=== PATIENT | female | born 1960 | race Hispanic/Latino ===

== ENCOUNTER 2020-09-17 18:05 | Emergency (ER) | payer OTHER ==
[2020-09-17 19:48] LABS: Absolute Lymphocytes (CBC) 0.9 K/uL (0.7-4.9); Basophils % 0.4 % (0-1.3); Hematocrit 43.2 % (36.0-45.0); Lymphocytes % 12.3 % (15.3-44.8); MPV 8.2 fL (7.6-11.3); RBC Red Blood Cell Count 4.83 M/uL (3.86-4.86)
[2020-09-17] MEDS ORDERED: NA CHLORIDE 0.9% 1,000 ML ONE ×2 (19:51→23:13)
[2020-09-17] MEDS ORDERED: ONDANSETRON 4 MG/2 ML VIAL ONE (19:58)
[2020-09-17] MEDS ORDERED: MORPHINE 4 MG/ML SYR ONE (19:58)
[2020-09-17 20:05] LABS: ALT/SGPT 13 U/L (12-78); AST/SGOT 13 U/L (15-37); Albumin 3.6 g/dL (3.4-5.0); Alkaline Phosphatase 86 U/L (45-117); BUN Blood Urea Nitrogen 13 mg/dL (7-18); Bicarbonate 24 mmol/L (21-32); Bilirubin Direct 0.1 mg/dL (0-0.2); Bilirubin Total 0.5 mg/dL (0.2-1.0); Glucose Level 105 mg/dL (74-106); Lipase 45 U/L (73-393); Potassium 3.1 mmol/L (3.5-5.1); Protein, Total 7.4 g/dL (6.4-8.2); Sodium Level 142 mmol/L (136-145)
--- NOTE | 2020-09-17 20:25 | RAD REPORT ---
EXAM DESCRIPTION: CT - Abdomen Pelvis W Contrast - 09/17/2020 8:10 pm CLINICAL HISTORY: Abdominal pain COMPARISON: none. TECHNIQUE: Computed axial tomography of the abdomen pelvis was obtained. 100 cc Isovue-300 was admin istered intravenously. Oral contrast was not requested which limits evaluation of bowel. All CT scans are performed using dose optimization technique as appropriate and may include automated exposure control or mA/KV adjustment according to patient size. FINDINGS: The liver, spleen, pancreas, adrenal and kidneys appear unremarkable. There is no evidence of diverticulitis. Normal appendix Fluid is present within nondilated is large and small bowel. Cholecystectomy. Prominent periuterine v eins. Small hiatal hernia IMPRESSION: Fluid within nondilated large and small bowel may indicate an enteritis Prominent periuterine veins is a nonspecific finding but can be seen with pelvic venous congestion sy ndrome
--- NOTE | 2020-09-17 23:14 | EDPHYS ---
Physician Documentation [facility] Name: Tyesha Lou Age: 59 yrs Sex: Female : 1960 Arrival Date: 09/17/2020 Time: 18:11 Bed 7 Private MD: ED Physician Yoel Parmar HPI: 09/17 19:51 This 59 yrs old Female presents to ER via Ambulatory with complaints of pm1 Diarrhea. 19:51 The patient presents to the emergency department with diarrhea, abdominal pain, of the pm1 epigastric area, described as crampy. Onset: The symptoms/episode began/occurred 2 day(s) ago. Possible causes: sick contacts, by family, daughter, works at [employer]. The symptoms are aggravated by food , The symptoms are alleviated by nothing. Associated signs and symptoms: Pertinent positives: abdominal pain, nausea, vomiting, Pertinent negatives: dysuria, fever. Severity of symptoms: in the emergency department the symptoms are unchanged. The patient has not experienced similar symptoms in the past. The patient has not recently seen a physician. Historical: - Allergies: 18:35 NSAIDS; ll1 18:35 Aspirin; ll1 - PMHx: 18:35 low BP; COPD; ll1 - PSHx: 18:35 facial reconstruction, rectal reconstruction; Cholecystectomy; foot sx; ll1 - Immunization history:: Flu vaccine is not up to date. - Social history:: Smoking status: Patient denies any tobacco usage or history of. ROS: 19:51 Constitutional: Negative for fever, chills, and weight loss, Neck: Negative for injury, pm1 pain, and swelling, Cardiovascular: Negative for chest pain, palpitations, and edema, Respiratory: Negative for shortness of breath, cough, wheezing, and pleuritic chest pain. 19:51 Back: Negative for injury and pain, MS/Extremity: Negative for injury and deformity, Skin: Negative for injury, rash, and discoloration, Neuro: Negative for headache, weakness, numbness, tingling, and seizure. 19:51 Abdomen/GI: Positive for abdominal pain, nausea, vomiting, and diarrhea. Exam: 19:51 Constitutional: This is a well developed, well nourished patient who is awake, alert, pm1 and in no acute distress. Head/Face: Normocephalic, atraumatic. Chest/axilla: Normal chest wall appearance and motion. Nontender with no deformity. No lesions are appreciated. 19:51 Back: No spinal tenderness. No costovertebral tenderness. Full range of motion. 19:51 Skin: Warm, dry with normal turgor. Normal color with no rashes, no lesions, and no evidence of cellulitis. MS/ Extremity: Pulses equal, no cyanosis. Neurovascular intact. Full, normal range of motion. 19:51 Cardiovascular: Exam negative for acute changes, Rate: normal, Rhythm: regular, Pulses: no pulse deficits are appreciated. 19:51 Respiratory: Exam negative for acute changes, respiratory distress, shortness of breath. 19:51 Abdomen/GI: Inspection: abdomen appears normal, Palpation: soft, in all quadrants, mild abdominal tenderness, in the epigastric area. 19:51 Neuro: Exam negative for acute changes, Orientation: is normal, Mentation: is normal, Motor: is normal, moves all fours. Vital Signs: 18:31 BP 130 / 83; Pulse 88; Resp 17; Temp 97.9; Pulse Ox 99% ; Weight 80.29 kg; Height 5 ft. ll1 0 in. (152.40 cm); Pain 7/10; 19:42 BP 127 / 77; Pulse 74; Resp 17; Pulse Ox 95% on R/A; rv 20:45 BP 121 / 69; Pulse 68; Resp 16; Pulse Ox 94% on R/A; jb4 22:00 BP 110 / 75; Pulse 74; Resp 16; Pulse Ox 95% on R/A; jb4 23:00 BP 101 / 66; Pulse 65; Resp 16; Pulse Ox 98% on R/A; jb4 09/18 00:00 BP 104 / 58; Pulse 56; Resp 18; Pulse Ox 98% on R/A; jb4 09/17 18:31 Body Mass Index 34.57 (80.29 kg, 152.40 cm) ll1 MDM: 09/17 19:26 Patient medically screened. pm1 23:01 Data reviewed: vital signs. Data interpreted: Pulse oximetry: on room air is 95 %. pm1 Interpretation: normal. Counseling: I had a detailed discussion with the patient and/or guardian regarding: the historical points, exam findings, and any diagnostic results supporting the discharge/admit diagnosis, lab results, radiology results, the need for outpatient follow up, to return to the emergency department if symptoms worsen or persist or if there are any questions or concerns that arise at home. 09/17 19:26 Order name: Basic Metabolic Panel pm09/17 19:26 Order name: CBC with Diff pm09/17 19:26 Order name: Hepatic Function pm09/17 19:26 Order name: Lipase pm09/17 19:50 Order name: CBC with Automated Diff; Complete Time: 19:58 EDMS 09/17 20:00 Order name: CREATININE WHOLE BLOOD; Complete Time: 20:08 EDMS 09/17 19:26 Order name: CT Abd/Pelvis - IV Contrast Only pm09/17 20:05 Order name: Basic Metabolic Panel; Complete Time: 20:08 EDMS 09/17 20:05 Order name: Liver (Hepatic) Function; Complete Time: 20:08 EDMS 09/17 20:05 Order name: Lipase; Complete Time: 20:08 EDMS 09/17 22:04 Order name: Troponin (emerg Dept Use Only) pm09/17 22:47 Order name: Troponin (Emerg Dept Use Only); Complete Time: 22:49 EDMS 09/17 23:43 Order name: Urine Dipstick--Ancillary (enter results) 2 09/17 23:54 Order name: Urine Dipstick-Ancillary; Complete Time: 13:23 EDMS 09/17 19:26 Order name: IV Saline Lock; Complete Time: 19:37 pm09/17 19:26 Order name: Labs collected and sent; Complete Time: 19:37 pm09/17 19:26 Order name: Urine Dipstick-Ancillary (obtain specimen); Complete Time: 23:42 pm09/17 20:25 Order name: CT; Complete Time: 20:43 EDMS 09/17 22:04 Order name: EKG; Complete Time: 22:04 pm09/17 22:04 Order name: EKG - Nurse/Tech; Complete Time: 22:28 pm1 Administered Medications: 19:37 Drug: NS 0.9% 1000 ml Route: IV; Rate: 1000 ml; Site: right wrist; jb4 20:30 Follow up: Response: No adverse reaction; IV Status: Completed infusion; IV Intake: jb4 1000ml 19:40 Drug: Zofran (Ondansetron) 4 mg Route: IVP; Site: right wrist; jb4 20:10 Follow up: Response: No adverse reaction; Nausea is decreased jb4 19:42 Drug: morphine 4 mg Route: IVP; Site: right wrist; jb4 20:15 Follow up: Response: No adverse reaction; Pain is decreased; RASS: Alert and Calm (0) jb4 23:00 Drug: NS 0.9% 1000 ml Route: IV; Rate: 1000 ml; Site: right wrist; jb4 09/18 00:19 Follow up: Response: No adverse reaction; IV Status: Completed infusion; IV Intake: jb4 1000ml Disposition: 02:33 Co-signature as Attending Physician, Yoel Parmar MD. 7 Disposition: 09/17/20 23:13 Discharged to Home. Impression: Vomiting, Diarrhea, unspecified. - Condition is Stable. - Discharge Instructions: Food Choices to Help Relieve Diarrhea, Adult, Diarrhea, Adult, Nausea and Vomiting, Adult, Viral Gastroenteritis, Adult. - Prescriptions for Zofran ODT 4 mg Oral tablet,disintegrating - place 1 tablet by TRANSLINGUAL route every 8 hours As needed; 20 tablet. Bentyl 20 mg Oral Tablet - take 1 tablet by ORAL route every 6 hours As needed; 20 tablet. - Medication Reconciliation Form, Thank You Letter, Antibiotic Education, Prescription Opioid Use form. - Follow up: Emergency Department; When: As needed; Reason: Recheck today's complaints, Continuance of care, Re-evaluation by your physician. Follow up: Private Physician; When: 2 - 3 days; Reason: Recheck today's complaints, Continuance of care, Re-evaluation by your physician. - Problem is new. - Symptoms have improved. Signatures: Dispatcher [employer] EDMS Olegario Campa, MEDINA ACT TUTOR pm1 Jose Whitney RN RN jb4 Pao Rucker RN RN 1 Yoel Parmar MD MD 7 Corrections: (The following items were deleted from the chart) 00:22 09/17 23:13 09/17/2020 23:13 Discharged to Home. Impression: Vomiting; Diarrhea, jb4 unspecified. Condition is Stable. Forms are Medication Reconciliation Form, Thank You Letter, Antibiotic Education, Prescription Opioid Use. Follow up: Emergency Department; When: As needed; Reason: Recheck today's complaints, Continuance of care, Re-evaluation by your physician. Follow up: Private Physician; When: 2 - 3 days; Reason: Recheck today's complaints, Continuance of care, Re-evaluation by your physician. Problem is new. Symptoms have improved. pm1
--- NOTE | 2020-09-17 23:14 | ER ---
Nurse's Notes [facility] Name: Tyesha Lou Age: 59 yrs Sex: Female : 1960 Arrival Date: 09/17/2020 Time: 18:11 Bed 7 Private MD: Diagnosis: Vomiting;Diarrhea, unspecified Presentation: 09/17 18:31 Chief complaint: Patient states: N/V/D for 2 days. + epigastric pain. No known fever. + ll1 decreased appetite. Coronavirus screen: Client denies travel out of the [place] in the last 14 days. cough unrelated to allergies, diarrhea, nausea, vomiting. Client presents with at least one sign or symptom that may indicate coronavirus-19. Standard/surgical mask placed on the client. Ebola Screen: Patient denies travel to an Ebola-affected area in the 21 days before illness onset. Initial Sepsis Screen: Does the patient meet any 2 criteria? No. Patient's initial sepsis screen is negative. Does the patient have a suspected source of infection? Yes: Acute abdominal pain. Risk Assessment: Do you want to hurt yourself or someone else? Patient reports no desire to harm self or others. Onset of symptoms was September 16, 2020. 18:31 Method Of Arrival: Ambulatory ll1 18:31 Acuity: IZZY 3 ll1 Triage Assessment: 19:40 General: Appears uncomfortable, Behavior is calm, cooperative. Pain:. Neuro: Level of rv Consciousness is awake, alert, obeys commands, Oriented to person, place, time, situation. Cardiovascular: Patient's skin is warm and dry. Respiratory: Airway is patent Respiratory effort is even, unlabored. GI: Reports diarrhea. Derm: Skin is intact. Historical: - Allergies: 18:35 NSAIDS; ll1 18:35 Aspirin; ll1 - PMHx: 18:35 low BP; COPD; ll1 - PSHx: 18:35 facial reconstruction, rectal reconstruction; Cholecystectomy; foot sx; ll1 - Immunization history:: Flu vaccine is not up to date. - Social history:: Smoking status: Patient denies any tobacco usage or history of. Screenin:40 Abuse screen: Denies threats or abuse. Denies injuries from another. Nutritional rv screening: No deficits noted. Tuberculosis screening: No symptoms or risk factors identified. Fall Risk None identified. Assessment: 19:30 General: Appears in no apparent distress. uncomfortable, Behavior is calm, cooperative, jb4 appropriate for age. Pain: Complains of pain in abdomen Pain does not radiate. Pain currently is 7 out of 10 on a pain scale. Neuro: Level of Consciousness is awake, alert, obeys commands, Oriented to person, place, time, situation. Cardiovascular: Respiratory: Airway is patent Respiratory effort is even, unlabored, Respiratory pattern is regular, symmetrical. GI: Abdomen is non-distended, obese, Reports lower abdominal pain, upper abdominal pain, diarrhea, nausea, vomiting. : No signs and/or symptoms were reported regarding the genitourinary system. EENT: No signs and/or symptoms were reported regarding the EENT system. Derm: Skin is intact, Skin is pink, warm \T\ dry. Musculoskeletal: Circulation, motion, and sensation intact. Range of motion: intact in all extremities. 21:01 Reassessment: Patient appears in no apparent distress at this time. Patient and/or jb4 family updated on plan of care and expected duration. Pain level reassessed. Patient is alert, oriented x 3, equal unlabored respirations, skin warm/dry/pink. 22:00 Reassessment: Patient appears in no apparent distress at this time. Patient and/or jb4 family updated on plan of care and expected duration. Pain level reassessed. Patient is alert, oriented x 3, equal unlabored respirations, skin warm/dry/pink. 23:03 Reassessment: Patient appears in no apparent distress at this time. Patient and/or jb4 family updated on plan of care and expected duration. Pain level reassessed. Patient is alert, oriented x 3, equal unlabored respirations, skin warm/dry/pink. Provider at the bedside explaining plan of care. Patient states feeling better. 23:30 Reassessment: D/c pending completion of IV fluids. mg2 09/18 00:00 Reassessment: Patient appears in no apparent distress at this time. Patient and/or jb4 family updated on plan of care and expected duration. Pain level reassessed. Patient is alert, oriented x 3, equal unlabored respirations, skin warm/dry/pink. Patient states feeling better. Vital Signs: 09/17 18:31 BP 130 / 83; Pulse 88; Resp 17; Temp 97.9; Pulse Ox 99% ; Weight 80.29 kg; Height 5 ft. ll1 0 in. (152.40 cm); Pain 7/10; 19:42 BP 127 / 77; Pulse 74; Resp 17; Pulse Ox 95% on R/A; rv 20:45 BP 121 / 69; Pulse 68; Resp 16; Pulse Ox 94% on R/A; jb4 22:00 BP 110 / 75; Pulse 74; Resp 16; Pulse Ox 95% on R/A; jb4 23:00 BP 101 / 66; Pulse 65; Resp 16; Pulse Ox 98% on R/A; jb4 09/18 00:00 BP 104 / 58; Pulse 56; Resp 18; Pulse Ox 98% on R/A; jb4 09/17 18:31 Body Mass Index 34.57 (80.29 kg, 152.40 cm) ll1 ED Course: 09/17 18:11 Patient arrived in ED. rg4 18:33 Triage completed. ll1 18:35 Arm band placed on. ll1 19:20 Olegario Campa NP is PHCP. pm1 19:20 Yoel Parmar MD is Attending Physician. pm1 19:33 Jose Whitney, BRENDON is Primary Nurse. jb4 19:35 Inserted saline lock: 20 gauge in right forearm, using aseptic technique. Blood rv collected. 19:35 Initial lab(s) drawn, by ut, sent to lab. rv 19:40 Patient has correct armband on for positive identification. Pulse ox on. NIBP on. rv 19:41 No provider procedures requiring assistance completed. rv Administered Medications: 19:37 Drug: NS 0.9% 1000 ml Route: IV; Rate: 1000 ml; Site: right wrist; jb4 20:30 Follow up: Response: No adverse reaction; IV Status: Completed infusion; IV Intake: jb4 1000ml 19:40 Drug: Zofran (Ondansetron) 4 mg Route: IVP; Site: right wrist; jb4 20:10 Follow up: Response: No adverse reaction; Nausea is decreased jb4 19:42 Drug: morphine 4 mg Route: IVP; Site: right wrist; jb4 20:15 Follow up: Response: No adverse reaction; Pain is decreased; RASS: Alert and Calm (0) jb4 23:00 Drug: NS 0.9% 1000 ml Route: IV; Rate: 1000 ml; Site: right wrist; jb4 09/18 00:19 Follow up: Response: No adverse reaction; IV Status: Completed infusion; IV Intake: jb4 1000ml Intake: 09/17 20:30 IV: 1000ml; Total: 1000ml. jb4 09/18 00:19 IV: 1000ml; Total: 2000ml. jb4 Outcome: 09/17 23:13 Discharge ordered by . pm1 09/18 00:22 Patient left the ED. jb4 Signatures: Olegario Campa NP TRUCK DRIVER RUBBISH COLLECTOR pm1 Alana Lugo rg4 Jose Whitney, RN RN jb4 Jack Jackson, RN RN mg2 Naresh Morgan RN RN rv Pao Rucker RN RN ll1 Corrections: (The following items were deleted from the chart) 00:03 00:00 Reassessment: Patient appears in no apparent distress at this time. Patient jb4 and/or family updated on plan of care and expected duration. Pain level reassessed. Patient is alert, oriented x 3, equal unlabored respirations, skin warm/dry/pink. Patient states feeling better. mg2
[2020-09-17 23:54] LABS: Urine Blood TRACE (NEG); Urine Glucose NEGATIVE (NEG); Urine Protein NEGATIVE (NEG)
[2020-09-18 00:27] VITALS: TEMP 97.9
[2020-09-18 00:33] VITALS: O2SAT 98
[2020-09-18 00:34] VITALS: BP 104/58
--- NOTE | 2020-09-18 13:13 | EKG ---
Test Date: 2020-09-17 Test Time: 22:13:34 Psychiatric Nurse: BENITEZ MEASUREMENT RESULTS: Intervals: Rate: 67 NM: 166 QRSD: 86 QT: 406 QTc: 429 Victor: P: 44 NM: 166 QRS: 55 T: 67 INTERPRETIVE STATEMENTS: Normal sinus rhythm Low voltage QRS Nonspecific ST and T wave abnormality Abnormal ECG Compared to ECG 01/25/1998 03:31:00 Low QRS voltage now present ST (T wave) deviation now present Electronically Signed On 09-18-20 13:12:25 TEST DESKMAN by Elio Richardson
== END 2020-09-18 00:22 | disposition home or self-care (01) ==
LOC: ER 18:05
DX: R19.7 Diarrhea, unspecified (principal); J44.9 Chronic obstructive pulmonary disease, unspecified; Z88.6 Allergy status to analgesic agent
CPT/HCPCS: 96361; 93005; 85025; 80048; 36415; 82565; 80076; 81003; 84484; 83690; 74177; 96375; 96374; 99284; Q9967; J7030 ×2; J2405

== ENCOUNTER 2020-11-22 16:36 | Emergency (ER) | payer OTHER ==
--- OUTSIDE RECORDS SUMMARY | 2020-11-22 16:39 | XMS REPORT | Continuity of Care Document ---
:1960 Author Organization [facility] t Address [address] [place] [address] Care Team Providers Name Role Phone Lab, Fam Pob I Attending Clinician Unavailable Doctor Unassigned, Name Attending Clinician Unavailable Kami HANEY, Tito Attending Clinician Problems This patient has no known problems. Allergies, Adverse Reactions, Alerts Allergy Allergy Status Severity Reaction(s) Onset Inactive Treating Comm ents Source Name Type Date Date Clinician Aspir-81 Adverse Active Hives [facility] Medications Ordered Filled Start Stop Current Ordering Indication Dosage Frequency Signature Comments Components Source Medication Medication Date Date Medication? Clinician (SIG) Name Name Acetaminoph Acetaminoph 2020-0 Yes Dutch [address] [facility] en-Codeine en-Codeine 4-30 [facility] as needed [facility] Sumatriptan Sumatriptan Yes Dutch [address] [facility] Succinate Succinate [facility] at least 2 [facility] - hours [facility] between l doses as Outpati needed ent Clinics Advair Advair Yes Dutch [address] [facility] Diskus Diskus [facility] ProAir HFA ProAir HFA Yes Dutch [address] [facility] Ipratropium Ipratropium Yes Dutch 2.[address] [facility] [place] Albuterol Albuterol Yes Dutch [address] [facility] Sulfate Sulfate [facility] needed [facility] Spiriva Spiriva Yes Dutch [address] HandiHaler HandiHaler [place] by Moira ortiz - inhaling [facility] the l contents Outpati of the ent capsule Clinics using the HandiHaler device Procedures This patient has no known procedures. Encounters Start End Encounter Admission Attending Care Care Encounter Source Date/Time Date/Time Type Type Clinicians Facility Department ID 2020-11-21 2020-11-21 [facility] [id number] 2020-11-07 2020-11-07 [facility] [id number] [facility] 2020-09-08 2020-09-08 [facility] [id number] [facility] 2020-08-07 2020-08-07 [facility] [id number] [facility] 2020-08-07 2020-08-07 [facility] [id number] [facility] 2020-06-16 2020-06-16 [facility] [id number] [facility] 2020-06-15 2020-06-15 Laboratory Lab, Adc [facility] [id number] 14:17:14 14:37:14 Only Fam [facility] [id number] [place] [id number] [facility] [phone] [address]al [address] 2020-06-15 2020-06-15 Letter Doctor NOAH [id number] 00:00:00 00:00:00 (Out) Unassigned, ZHAO [id number] [place] [facility] [id number] 2020-05-24 2020-05-24 Outpatient [facility] [id number] [facility] 2020-05-23 2020-05-23 Out[facility] [id number] [facility] 2020-02-29 2020-02-29 [facility] [id number] [facility] 13:15:00 13:15:00 [facility] [facility] Outpati [facility] Clinics 2019-12-30 2019-12-30 [facility] [id number] 13:30:00 13:30:00 t [facility] Outpat[facility] Clinics 2019-12-08 2019-12-08 Orders Doctor ZAMORA [id number] 00:00:00 00:00:00 Only Unassigned, ZHAO [id number] [place] [id number] 2019-12-02 2019-12-02 [facility] [id number] 11:00:00 11:00:00 t [place] [employer] [facility] Outpat[facility] Clinics 2019-09-18 2019-09-18 Emergency [facility], [facility] [id number] 17:41:11 19:36:00 Rhina Bruno [id number] [place] [id number] [place] [id number] [id number] 2019-08-23 2019-08-23 Orders Doctor ZAMORA [id number] 00:00:00 00:00:00 Only Unassigned, ZHAO [id number] [place] [facility] [id number] [id number] Results This patient has no known results.
[2020-11-22 20:44] LABS: Absolute Lymphocytes (CBC) 3.1 K/uL (0.7-4.9); Basophils % 0.5 % (0-1.3); Hematocrit 38.1 % (36.0-45.0); Lymphocytes % 34.1 % (15.3-44.8); MPV 8.2 fL (7.6-11.3); RBC Red Blood Cell Count 4.32 M/uL (3.86-4.86)
[2020-11-22 20:45] LABS: Protime INR 1.07
[2020-11-22 20:50] LABS: ALT/SGPT 17 U/L (12-78); AST/SGOT 10 U/L (15-37); Albumin 3.4 g/dL (3.4-5.0); Alkaline Phosphatase 82 U/L (45-117); BUN Blood Urea Nitrogen 13 mg/dL (7-18); Bicarbonate 29 mmol/L (21-32); Bilirubin Direct < 0.1 mg/dL (0-0.2); Bilirubin Total 0.2 mg/dL (0.2-1.0); Glucose Level 118 mg/dL (74-106); Magnesium 1.9 mg/dL (1.8-2.4); NT PRO-BNP 34 pg/mL (<125); Potassium 3.4 mmol/L (3.5-5.1); Protein, Total 6.8 g/dL (6.4-8.2); Sodium Level 141 mmol/L (136-145); Troponin (Emerg Dept Use Only) < 0.02 ng/mL (0.0-0.045)
[2020-11-22] MEDS ORDERED: ONDANSETRON 4 MG/2 ML VIAL ONE (21:19)
[2020-11-22] MEDS ORDERED: MECLIZINE HCL 12.5 MG TAB ONE (21:19)
[2020-11-22] MEDS ORDERED: NA CHLORIDE 0.9% 1,000 ML ONE (21:19)
--- NOTE | 2020-11-22 21:21 | RAD REPORT ---
EXAM DESCRIPTION: RAD - Chest Single View - 11/22/2020 8:44 pm CLINICAL HISTORY: dizziness COMPARISON: None TECHNIQUE: AP portable chest image was obtained 11/22/2020 8:44 pm . FINDINGS: Lungs are clear. Heart and vasculature are normal. No measurable pleural effusion and no p neumothorax. No acute bony abnormality seen. No acute aortic findings suspected. IMPRESSION: No acute cardiopulmonary process.
--- NOTE | 2020-11-22 21:22 | RAD REPORT ---
EXAM DESCRIPTION: CT - Head Brain Wo Cont - 11/22/2020 9:07 pm CLINICAL HISTORY: DIZZINESS COMPARISON: No comparisons TECHNIQUE: Axial 5 mm thick images of the head were obtained without IV contrast. All CT scans are performed using dose optimization technique as appropriate and may include automated exposure control or mA/KV adjustment according to patient size. FINDINGS: No intracranial hemorrhage, mass, edema or shift of mid-line structures. No acute infarcti on changes seen. No abnormal extra-axial fluid collections. Ventricles are normal. Physiologic basal ganglia calcifications are. Mastoid air cells and visualized portions of the paranasal sinuses are clear. No acute bony findings. IMPRESSION: Negative non-contrast CT head examination.
[2020-11-22] MEDS ORDERED: FAMOTIDINE 20 MG/2 ML VIAL IV ONE (21:24)
[2020-11-22] MEDS ORDERED: dexAMETHasone 10 MG/ML VIAL ONE (21:24)
--- NOTE | 2020-11-22 22:09 | EDPHYS ---
Physician Documentation [facility] Name: Tyesha Lou Age: 59 yrs Sex: Female : 1960 Arrival Date: 11/22/2020 Time: 16:38 Bed 7 Private MD: [facility] ED Physician Rashad Sims HPI: 11/22 21:00 This 59 yrs old Female presents to ER via Ambulatory with complaints of víctor Vertigo. 21:00 The patient or guardian complains of decreased range of motion. The symptoms are víctor located diffusely. Onset: The symptoms/episode began/occurred 2 day(s) ago. Context: The problem was sustained at an unknown location. The patient presents with sense of spinning, vertigo. Onset: The symptoms/episode began/occurred 2 day(s) ago. Context: occurred at home. Modifying factors: The symptoms are alleviated by closing eyes, Dramamine, holding head still, the symptoms are aggravated by movement of head, standing up. Associated signs and symptoms: The patient has no apparent associated signs or symptoms. Historical: - Allergies: 16:56 Aspirin; ll1 16:56 NSAIDS; ll1 - PMHx: 16:56 COPD; low bp; ll1 - PSHx: 16:56 facial reconstruction, rectal reconstruction; Cholecystectomy; foot sx; C3-C5 butterfly ll1 plate sx; - Immunization history:: Client reports having NOT received the Covid vaccine. Flu vaccine is not up to date. - Social history:: Smoking status: Patient reports the use of cigarette tobacco products, smokes one-half pack cigarettes per day. - Family history:: not pertinent. ROS: 21:00 Constitutional: Negative for fever, chills, and weight loss, Eyes: Negative for injury, víctor pain, redness, and discharge, ENT: Negative for injury, pain, and discharge, Neck: Negative for injury, pain, and swelling, Cardiovascular: Negative for chest pain, palpitations, and edema, Respiratory: Negative for shortness of breath, cough, wheezing, and pleuritic chest pain, Abdomen/GI: Negative for abdominal pain, nausea, vomiting, diarrhea, and constipation, Back: Negative for injury and pain, : Negative for injury, bleeding, discharge, and swelling, MS/Extremity: Negative for injury and deformity, Skin: Negative for injury, rash, and discoloration, Psych: Negative for depression, anxiety, suicide ideation, homicidal ideation, and hallucinations, Allergy/Immunology: Negative for hives, rash, and allergies, Endocrine: Negative for neck swelling, polydipsia, polyuria, polyphagia, and marked weight changes, Hematologic/Lymphatic: Negative for swollen nodes, abnormal bleeding, and unusual bruising. 21:00 Neuro: Positive for dizziness. Exam: 21:03 Constitutional: This is a well developed, well nourished patient who is awake, alert, víctor and in no acute distress. Head/Face: Normocephalic, atraumatic. Eyes: Pupils equal round and reactive to light, extra-ocular motions intact. Lids and lashes normal. Conjunctiva and sclera are non-icteric and not injected. Cornea within normal limits. Periorbital areas with no swelling, redness, or edema. ENT: Nares patent. No nasal discharge, no septal abnormalities noted. Tympanic membranes are normal and external auditory canals are clear. Oropharynx with no redness, swelling, or masses, exudates, or evidence of obstruction, uvula midline. Mucous membranes moist. Neck: Trachea midline, no thyromegaly or masses palpated, and no cervical lymphadenopathy. Supple, full range of motion without nuchal rigidity, or vertebral point tenderness. No Meningismus. Chest/axilla: Normal chest wall appearance and motion. Nontender with no deformity. No lesions are appreciated. Cardiovascular: Regular rate and rhythm with a normal S1 and S2. No gallops, murmurs, or rubs. Normal PMI, no JVD. No pulse deficits. Respiratory: Lungs have equal breath sounds bilaterally, clear to auscultation and percussion. No rales, rhonchi or wheezes noted. No increased work of breathing, no retractions or nasal flaring. Abdomen/GI: Soft, non-tender, with normal bowel sounds. No distension or tympany. No guarding or rebound. No evidence of tenderness throughout. Back: No spinal tenderness. No costovertebral tenderness. Full range of motion. Skin: Warm, dry with normal turgor. Normal color with no rashes, no lesions, and no evidence of cellulitis. MS/ Extremity: Pulses equal, no cyanosis. Neurovascular intact. Full, normal range of motion. Neuro: Awake and alert, GCS 15, oriented to person, place, time, and situation. Cranial nerves II-XII grossly intact. Motor strength 5/5 in all extremities. Sensory grossly intact. Cerebellar exam normal. Normal gait. Psych: Awake, alert, with orientation to person, place and time. Behavior, mood, and affect are within normal limits. 21:10 ECG was reviewed by the Attending Physician. víctor Vital Signs: 16:53 BP 132 / 83; Pulse 76; Resp 17; Temp 98.3; Pulse Ox 99% ; Weight 74.39 kg; Height 5 ft. ll1 1 in. (154.94 cm); Pain 7/10; 21:30 BP 125 / 78; Pulse 70; Resp 19; Pulse Ox 98% ; rr5 22:26 BP 119 / 81; Pulse 62; Resp 16; Temp 98; Pulse Ox 100% ; rv 22:57 BP 117 / 75; Pulse 65; Resp 16; Pulse Ox 98% ; rr5 16:53 Body Mass Index 30.99 (74.39 kg, 154.94 cm) ll1 MDM: 19:56 Patient medically screened. víctor 21:03 Differential diagnosis: cervical strain, Degenerative Disc Disease. Differential víctor diagnosis: cardiac arrhythmia, CVA, generalized weakness, hypovolemia, near-syncope. Data reviewed: vital signs, nurses notes, lab test result(s), EKG, radiologic studies, CT scan, doppler, plain films. Data interpreted: vehicle monitor technician: rate is 76 beats/min, rhythm is regular, Pulse oximetry: on room air is 99 %. Test interpretation: by ED physician or midlevel provider: ECG, plain radiologic studies. Counseling: I had a detailed discussion with the patient and/or guardian regarding: the historical points, exam findings, and any diagnostic results supporting the discharge/admit diagnosis, lab results, radiology results, the need for outpatient follow up, for definitive care, a tack maker, an ENT specialist, a neurologist. 11/22 20:12 Order name: Basic Metabolic Panel; Complete Time: 20:59 rr5 11/22 20:12 Order name: CBC with Diff; Complete Time: 20:59 rr5 11/22 20:12 Order name: LFT's; Complete Time: 20:59 rr5 11/22 20:12 Order name: Magnesium; Complete Time: 20:59 rr5 11/22 20:12 Order name: NT PRO-BNP; Complete Time: 20:59 rr5 11/22 20:12 Order name: PT-INR; Complete Time: 20:59 rr5 11/22 20:12 Order name: Troponin (emerg Dept Use Only); Complete Time: 20:59 rr5 11/22 20:12 Order name: XRAY Chest (1 view); Complete Time: 22:07 rr5 11/22 20:59 Order name: Carotid Artery Bilateral US víctor 11/22 20:59 Order name: CT Head Brain wo Cont; Complete Time: 22:07 víctor 11/22 20:12 Order name: EKG; Complete Time: 20:13 rr5 11/22 20:12 Order name: Cardiac monitoring; Complete Time: 20:46 rr5 11/22 20:12 Order name: EKG - Nurse/Tech; Complete Time: 20:46 rr5 11/22 20:12 Order name: IV Saline Lock; Complete Time: 20:46 rr5 11/22 20:12 Order name: Labs collected and sent; Complete Time: 20:46 rr5 11/22 20:12 Order name: O2 Per Protocol; Complete Time: 20:46 rr5 11/22 20:12 Order name: O2 Sat Monitoring; Complete Time: 20:46 rr5 EC:10 Rate is 64 beats/min. Rhythm is regular. QRS [place] is Normal. MT interval is normal. QRS víctor interval is normal. QT interval is normal. No Q waves. T waves are Normal. No ST changes noted. Clinical impression: Normal ECG and No evidence of ischemia. Interpreted by me. Reviewed by me. Administered Medications: 21:20 Drug: NS 0.9% 1000 ml Route: IV; Rate: 1 bolus; Site: right antecubital; rr5 22:10 Follow up: Response: No adverse reaction; IV Status: Completed infusion; IV Intake: rr5 1000ml 21:20 Drug: Zofran (Ondansetron) 4 mg Route: IVP; Site: right antecubital; rr5 22:15 Follow up: Response: No adverse reaction rr5 21:20 Drug: Meclizine 50 mg Route: PO; rr5 22:15 Follow up: Response: No adverse reaction rr5 21:22 Drug: Pepcid (famotidine) 20 mg Route: IVP; Site: right antecubital; rr5 22:14 Follow up: Response: No adverse reaction rr5 21:29 Drug: Decadron - Dexamethasone 10 mg Route: IVP; Site: right antecubital; rr5 22:14 Follow up: Response: No adverse reaction rr5 22:24 Drug: Potassium Effervescent Tablet 25 mEq Route: PO; rr5 22:58 Follow up: Response: No adverse reaction rr5 Disposition: 11/22/20 22:08 Discharged to Home. Impression: Vertiginous syndromes in diseases classified elsewhere, Dizziness and giddiness, Hypokalemia. - Condition is Stable. - Discharge Instructions: Benign Positional Vertigo, Potassium Content of Foods, Dizziness, Vertigo, Vertigo, [id number], Hypokalemia, Dizziness, [id number]. - Prescriptions for Meclizine 25 mg Oral Tablet - take 1 tablet by ORAL route every 8 hours As needed; 30 tablet. Zofran 4 mg Oral Tablet - take 1 tablet by ORAL route every 12 hours As needed; 20 tablet. Medrol (Mario) 4 mg Oral Tablets, Dose Pack - take 1 tablet by ORAL route as directed - follow package instructions; 1 packet. - Medication Reconciliation Form, Thank You Letter, Antibiotic Education, Prescription Opioid Use form. - Follow up: Dutch López; When: 2 - 3 days; Reason: Recheck today's complaints, Continuance of care, Re-evaluation by your physician. Follow up: Elio Richardson; When: 2 - 3 days; Reason: Recheck today's complaints, Continuance of care, Re-evaluation by your physician. Follow up: Serge Arrieta; When: 2 - 3 days; Reason: Recheck today's complaints, Continuance of care, Re-evaluation by your physician. - Problem is new. - Symptoms have improved. Signatures: Dispatcher [employer] EDRashad Alfonso MD MD cha Roque, Raymond RN RN rr5 Pao Rucker RN RN ll1 Corrections: (The following items were deleted from the chart) 22:58 22:08 11/22/2020 22:08 Discharged to Home. Impression: Vertiginous syndromes in rr5 diseases classified elsewhere; Dizziness and giddiness; Hypokalemia. Condition is Stable. Discharge Instructions: Benign Positional Vertigo, Dizziness, Vertigo, Vertigo, [id number], Dizziness, Kits-un-Clkg. Prescriptions for Meclizine 25 mg Oral Tablet - take 1 tablet by ORAL route every 8 hours As needed; 30 tablet, Zofran 4 mg Oral Tablet - take 1 tablet by ORAL route every 12 hours As needed; 20 tablet, Medrol (Mario) 4 mg Oral Tablets, Dose Pack - take 1 tablet by ORAL route as directed - follow package instructions; 1 packet. and Forms are Medication Reconciliation Form, Thank You Letter, Antibiotic Education, Prescription Opioid Use. Follow up: Dutch López; When: 2 - 3 days; Reason: Recheck today's complaints, Continuance of care, Re-evaluation by your physician. Follow up: Elio Richardson; When: 2 - 3 days; Reason: Recheck today's complaints, Continuance of care, Re-evaluation by your physician. Follow up: Serge Arrieta; When: 2 - 3 days; Reason: Recheck today's complaints, Continuance of care, Re-evaluation by your physician. Problem is new. Symptoms have improved. víctor
--- NOTE | 2020-11-22 22:09 | ER ---
Nurse's Notes [facility] Name: Tyesha Lou Age: 59 yrs Sex: Female : 1960 Arrival Date: 11/22/2020 Time: 16:38 Bed 7 Private MD: Dutch López Diagnosis: Vertiginous syndromes in diseases classified elsewhere;Dizziness and giddiness;Hypokalemia Presentation: 11/22 16:53 Chief complaint: Patient states: Vertigo since Friday night. Tried motion sickness ll1 pills, helped slightly. Noticed R sided throat pain and neck/upper back pain since yesterday. States she feels popping in her neck area with movement. No falls or trauma. Coronavirus screen: Client denies travel out of the [place] in the last 14 days. At this time, the client does not indicate any symptoms associated with coronavirus-19. Ebola Screen: Patient denies travel to an Ebola-affected area in the 21 days before illness onset. Initial Sepsis Screen: Does the patient meet any 2 criteria? No. Patient's initial sepsis screen is negative. Does the patient have a suspected source of infection? Yes: Other: sore throat. Risk Assessment: Do you want to hurt yourself or someone else? Patient reports no desire to harm self or others. Onset of symptoms was November 20, 2020. 16:53 Method Of Arrival: Ambulatory ll1 16:53 Acuity: IZZY 3 ll1 Historical: - Allergies: 16:56 Aspirin; ll1 16:56 NSAIDS; ll1 - PMHx: 16:56 COPD; low bp; ll1 - PSHx: 16:56 facial reconstruction, rectal reconstruction; Cholecystectomy; foot sx; C3-C5 butterfly ll1 plate sx; - Immunization history:: Client reports having NOT received the Covid vaccine. Flu vaccine is not up to date. - Social history:: Smoking status: Patient reports the use of cigarette tobacco products, smokes one-half pack cigarettes per day. - Family history:: not pertinent. Screenin:45 Abuse screen: Denies threats or abuse. Denies injuries from another. Nutritional rr5 screening: No deficits noted. Tuberculosis screening: No symptoms or risk factors identified. Fall Risk IV access (20 points). Total Petit Fall Scale indicates No Risk (0-24 pts). Assessment: 20:44 General: Appears in no apparent distress. comfortable, Behavior is calm, cooperative, rr5 appropriate for age. Pain: Complains of pain in chest Pain currently is 5 out of 10 on a pain scale. Quality of pain is described as aching, Pain began gradually, Is intermittent. Neuro: Level of Consciousness is awake, alert, obeys commands, Oriented to person, place, time, Reports dizziness. Cardiovascular: Reports chest pain, Capillary refill < 3 seconds Patient's skin is warm and dry. Respiratory: Airway is patent Respiratory effort is even, unlabored, Respiratory pattern is regular, symmetrical. GI: No signs and/or symptoms were reported involving the gastrointestinal system. : No signs and/or symptoms were reported regarding the genitourinary system. EENT: Reports no sense of smell and taste. Derm: Skin is intact, is healthy with good turgor, Skin temperature is warm. Musculoskeletal: Capillary refill < 3 seconds. 21:40 Reassessment: Patient appears in no apparent distress at this time. Patient is alert, rr5 oriented x 3, equal unlabored respirations, skin warm/dry/pink. awaiting for results. 22:35 Reassessment: Patient appears in no apparent distress at this time. Patient is alert, rr5 oriented x 3, equal unlabored respirations, skin warm/dry/pink. for discharge awaiting for provider to explained the results. 22:55 Reassessment: Patient appears in no apparent distress at this time. Patient is alert, rr5 oriented x 3, equal unlabored respirations, skin warm/dry/pink. discharge instruction given and explained without complaints made. Vital Signs: 16:53 BP 132 / 83; Pulse 76; Resp 17; Temp 98.3; Pulse Ox 99% ; Weight 74.39 kg; Height 5 ft. ll1 1 in. (154.94 cm); Pain 7/10; 21:30 BP 125 / 78; Pulse 70; Resp 19; Pulse Ox 98% ; rr5 22:26 BP 119 / 81; Pulse 62; Resp 16; Temp 98; Pulse Ox 100% ; rv 22:57 BP 117 / 75; Pulse 65; Resp 16; Pulse Ox 98% ; rr5 16:53 Body Mass Index 30.99 (74.39 kg, 154.94 cm) ll1 ED Course: 16:38 Patient arrived in ED. as 16:39 Dutch López DO is Private Physician. as 16:55 Triage completed. ll1 16:57 Arm band placed on. ll1 19:53 Kel Toth, BRENDON is Primary Nurse. rr5 19:56 Rashad Sims MD is Attending Physician. víctor 20:17 Inserted saline lock: 20 gauge in right antecubital area, using aseptic technique. rr5 Blood collected. 20:40 XRAY Chest (1 view) In Process Unspecified. EDMS 20:45 Patient has correct armband on for positive identification. Placed in gown. Bed in low rr5 position. Call light in reach. residential monitor on. Pulse ox on. NIBP on. 20:45 EKG done, by ED staff, reviewed by Rashad Sims MD. rr5 21:07 CT Head Brain wo Cont In Process Unspecified. EDMS 21:55 Carotid Artery Bilateral US In Process Unspecified. EDMS 22:08 Dutch López DO is Referral Physician. víctor 22:08 Elio Richardson MD is Referral Physician. víctor 22:08 Serge Arrieta MD is Referral Physician. víctor 22:27 No provider procedures requiring assistance completed. IV discontinued, intact, rr5 bleeding controlled, No redness/swelling at site. Pressure dressing applied. Administered Medications: 21:20 Drug: NS 0.9% 1000 ml Route: IV; Rate: 1 bolus; Site: right antecubital; rr5 22:10 Follow up: Response: No adverse reaction; IV Status: Completed infusion; IV Intake: rr5 1000ml 21:20 Drug: Zofran (Ondansetron) 4 mg Route: IVP; Site: right antecubital; rr5 22:15 Follow up: Response: No adverse reaction rr5 21:20 Drug: Meclizine 50 mg Route: PO; rr5 22:15 Follow up: Response: No adverse reaction rr5 21:22 Drug: Pepcid (famotidine) 20 mg Route: IVP; Site: right antecubital; rr5 22:14 Follow up: Response: No adverse reaction rr5 21:29 Drug: Decadron - Dexamethasone 10 mg Route: IVP; Site: right antecubital; rr5 22:14 Follow up: Response: No adverse reaction rr5 22:24 Drug: Potassium Effervescent Tablet 25 mEq Route: PO; rr5 22:58 Follow up: Response: No adverse reaction rr5 Intake: 22:10 IV: 1000ml; Total: 1000ml. rr5 Outcome: 22:08 Discharge ordered by . víctor 22:27 Discharged to home ambulatory. weston 22:27 Condition: good 22:27 Discharge instructions given to patient, Instructed on discharge instructions, follow up and referral plans. medication usage, Demonstrated understanding of instructions, follow-up care, medications, Prescriptions given X 3. 22:58 Patient left the ED. rr5 Signatures: Dispatcher [employer] EDMS Rashad Sims MD MD cha Martinez, Amelia as Vicente, Ronaldo RN RN rv Kel Toth RN RN rr5 Pao Rucker RN RN ll1
[2020-11-22] MEDS ORDERED: POTASSIUM 25 MEQ EFFERV TAB ONE (22:35)
[2020-11-22 23:14] VITALS: TEMP 98
[2020-11-22 23:15] VITALS: BP 117/75; O2SAT 98
--- NOTE | 2020-11-23 07:38 | RAD REPORT ---
EXAM DESCRIPTION: - CP - 11/22/2020 9:55 pm CLINICAL HISTORY: DIZZINESS COMPARISON: No comparisons TECHNIQUE: Real-time sonographic evaluation of bilateral carotid and vertebral systems was performed . Clark scale and Doppler interrogation were performed with waveform tracing bilaterally. FINDINGS: Normal high resistance waveforms are noted in both external carotid arteries. The common c arotid arteries and internal carotid arteries show normal low resistance waveforms. Minimal plaquing changes are seen in the bilateral carotid vasculature. There is significant narrowin g of vessel lumen. No dissection changes are present. Peak systolic and end diastolic velocity values and the ICA/CCA ratios are in the non-hemodynamically significant range. Antegrade flow seen in both vertebral arteries. Velocity values and ratios were recorded and are retained in the patient's imaging records. IMPRESSION: No significant atherosclerotic changes noted. No evidence of a hemodynamically significant stenosis.
== END 2020-11-22 22:58 | disposition home or self-care (01) ==
LOC: ER 16:36
DX: E87.6 Hypokalemia (principal); H82.9 Vertiginous syndromes in diseases classified elsewhere, unspecified ear; J44.9 Chronic obstructive pulmonary disease, unspecified; F17.210 Nicotine dependence, cigarettes, uncomplicated; Z88.6 Allergy status to analgesic agent
CPT/HCPCS: 85025; 80048; 36415; 83735; 85610; 80076; 84484; 83880; 70450; 71045; 93880; J1100; J7030; J2405; 93005; 96361; 96374; 96375; 99285